=== PATIENT | male | born 1970 | race Caucasian/White ===

== ENCOUNTER 2023-07-07 11:05 | Emergency (ER) | payer OTHER ==
[~2023-07-07] VITALS: Ht 190.5 cm; Wt 91.0 kg
[2023-07-07 11:18] VITALS: BP 139/99; PULSE 105; RESP 18; TEMP 98.1; O2SAT 96
== END 2023-07-07 12:00 | disposition left against medical advice (07) ==
LOC: ER 11:05
DX: R51.9 Headache, unspecified (principal); Z53.21 Procedure and treatment not carried out due to patient leaving prior to being seen by health care provider; W22.8XXA Striking against or struck by other objects, initial encounter; Y93.89 Activity, other specified; Y92.89 Other specified places as the place of occurrence of the external cause; Y99.8 Other external cause status
CPT/HCPCS: 99281